=== PATIENT | male | born 1990 | race Caucasian/White ===

== ENCOUNTER 2020-07-06 15:47 | Observation (INO) ==
[2020-07-06] MEDS ORDERED: Naloxone 0.4 MG/ML INJ IVP PRN (17:00)
[2020-07-06] MEDS ORDERED: methocarbamoL 750 MG TABLET PO PRN (18:11)
[2020-07-06] MEDS ORDERED: hydrOXYzine pamoate 25 MG CAPSULE PO PRN (18:11)
[2020-07-06] MEDS ORDERED: GI Cocktail 40 ML EACH PO ONE (18:19)
[2020-07-06] MEDS ORDERED: Acetaminophen 325 MG TABLET PO PRN (18:21)
[2020-07-06] MEDS: Pantoprazole 40 MG VIAL IVP SCH (18:47)
[2020-07-06] MEDS: Ringers Solution, Lactated 1,000 ML IVC SCH (18:47)
[2020-07-06] MEDS: BUPRENORPHINE HCL SL SCH (18:47)
[2020-07-06] MEDS: NALOXONE HCL SL SCH (18:47)
[2020-07-06 20:53] LABS: Amphetamine Screen,Urine Negative ng/mL (Cutoff=1000); Barbiturate Screen,Urine Negative ng/mL (Cutoff=200); Benzodiazepines Screen,Urine Negative ng/mL (Cutoff=200); Cannabinoid Screen,Urine Positive ng/mL (Cutoff = 50); Cocaine Screen,Urine Negative ng/mL (Cutoff= 300); Opiate Screen,Urine Negative ng/mL (Cutoff=300); Phencyclidine Screen,Urine Negative ng/mL (Cutoff=25)
[2020-07-06] MEDS: *HR* Promethazine 25 MG/ML VIAL IM PRN (21:00)
[2020-07-06] MEDS: Divalproex (24 HR) 500 MG TABLET PO SCH (21:01)
[2020-07-06] MEDS: QUEtiapine Fumarate 25 MG TABLET PO SCH (21:01)
[2020-07-07] MEDS: Ringers Solution, Lactated 1,000 ML IVC SCH ×3 (03:40→20:09)
[2020-07-07 04:32] LABS: Basophils % 0.2 %; Eosinophils # 0.1 K/mcL (0.0-0.6); Eosinophils % 0.7 %; Hemoglobin 14.2 g/dL (12.9-16.9); Immature Granulocytes % 0.2 % (0-4); Lymphocytes # 3.1 K/mcL (0.6-4.6); Lymphocytes % 24.8 %; Mean Corpuscular Hemoglobin 29.3 pg (28.0-33.3); Mean Corpuscular Volume 88.7 fL (83.0-100.0); Mean Platelet Volume 9.4 fL (9.4-12.4); Monocytes % 8.2 %; Neutrophils # 8.1 K/mcL (1.6-8.9); Platelet Count 199 K/mcL (140-400); Red Blood Count 4.85 M/mcL (4.19-5.50); Red Cell Distribution Width 12.5 % (11.5-14.5); Segmented Neutrophils % 65.9 %; White Blood Count 12.3 K/mcL (4.3-11.1)
[2020-07-07 04:50] LABS: BUN/Creatinine Ratio 14 (6-26); Blood Urea Nitrogen 17 mg/dL (6-20); Carbon Dioxide 28 mEq/L (23-29); Chloride 103 mEq/L (98-107); Glucose 94 mg/dL (70-105); Osmolality,Calculated 287 (280-300); Potassium 4.6 mEq/L (3.5-5.1); Sodium 138 mEq/L (136-145); eGFR For African Americans > 60 (> 60); eGFR For Non-African Americans > 60 (> 60)
[2020-07-07] MEDS: Fluticasone Propionate Nasal 50 MCG/SPRAY BOTTLE NS SCH (05:31)
[2020-07-07] MEDS: Pantoprazole 40 MG VIAL IVP SCH ×2 (05:31→17:37)
[2020-07-07] MEDS: Colchicine 0.6 MG TABLET PO SCH (08:54)
[2020-07-07] MEDS: BUPRENORPHINE HCL SL SCH (09:09)
[2020-07-07] MEDS: NALOXONE HCL SL SCH (09:09)
[2020-07-07] MEDS: Ondansetron ODT 4 MG TAB.RAPDIS SL PRN (10:58)
[2020-07-07] MEDS: *HR* Buprenorphine HCl 8 MG TAB.SUBL SL SCH (10:58)
[2020-07-07 17:31] LABS: BUN/Creatinine Ratio 14 (6-26); Blood Urea Nitrogen 17 mg/dL (6-20); Calcium 8.8 mg/dL (8.6-10.3); Carbon Dioxide 32 mEq/L (23-29); Chloride 103 mEq/L (98-107); Glucose 92 mg/dL (70-105); Osmolality,Calculated 287 (280-300); Potassium 4.1 mEq/L (3.5-5.1); Sodium 138 mEq/L (136-145); eGFR For African Americans > 60 (> 60); eGFR For Non-African Americans > 60 (> 60)
[2020-07-07] MEDS ORDERED: Perflutren Lipid Microsphere 1.3 ML in 0.9 % Sodium Chloride 8.7 ML IVP PRN (17:32)
[2020-07-07] MEDS: *HR* Promethazine 25 MG/ML VIAL IM PRN (17:42)
[2020-07-07] MEDS ORDERED: Acetaminophen IV 1,000 MG/100 ML INFUS..BTL IVPB ONE (19:58)
[2020-07-07] MEDS: Divalproex (24 HR) 500 MG TABLET PO SCH (20:08)
[2020-07-07] MEDS: QUEtiapine Fumarate 25 MG TABLET PO SCH (20:09)
[2020-07-07] MEDS ORDERED: Ketorolac 15 MG/ML VIAL IVP ONE (23:39)
[2020-07-08] MEDS ORDERED: Ketorolac 15 MG/ML VIAL IVP ONE (03:29)
[2020-07-08 05:03] LABS: Basophils % 0.6 %; Eosinophils # 0.2 K/mcL (0.0-0.6); Eosinophils % 3.3 %; Hematocrit 40.6 % (37.5-50.1); Hemoglobin 12.9 g/dL (12.9-16.9); Immature Granulocytes % 0.1 % (0-4); Lymphocytes # 2.7 K/mcL (0.6-4.6); Lymphocytes % 39.9 %; Mean Corpuscular HGB Conc 31.8 g/dL (31.6-35.5); Mean Corpuscular Hemoglobin 27.9 pg (28.0-33.3); Mean Corpuscular Volume 87.9 fL (83.0-100.0); Mean Platelet Volume 9.6 fL (9.4-12.4); Monocytes # 0.7 K/mcL (0.0-1.3); Monocytes % 10.7 %; Neutrophils # 3.1 K/mcL (1.6-8.9); Platelet Count 160 K/mcL (140-400); Red Blood Count 4.62 M/mcL (4.19-5.50); Red Cell Distribution Width 12.3 % (11.5-14.5); Segmented Neutrophils % 45.4 %; White Blood Count 6.8 K/mcL (4.3-11.1)
[2020-07-08] MEDS: Pantoprazole 40 MG VIAL IVP SCH (05:18)
[2020-07-08] MEDS: Fluticasone Propionate Nasal 50 MCG/SPRAY BOTTLE NS SCH (08:07)
[2020-07-08] MEDS: Colchicine 0.6 MG TABLET PO SCH (08:08)
[2020-07-08] MEDS: *HR* Buprenorphine HCl 8 MG TAB.SUBL SL SCH (08:08)
[2020-07-08] MEDS: Ringers Solution, Lactated 1,000 ML IVC SCH ×2 (08:11→08:12)
[2020-07-08] MEDS: NALOXONE HCL SL SCH (08:12)
[2020-07-08] MEDS: BUPRENORPHINE HCL SL SCH (08:12)
[2020-07-08] MEDS: Ondansetron ODT 4 MG TAB.RAPDIS SL PRN (11:08)
[2020-07-08 11:17] VITALS: BP 131/57
== END 2020-07-08 13:41 | disposition home or self-care (01) ==
LOC: 3BNU → SUATTDRO 16:43
PROVIDERS: ADMIT Internal Medicine; ATTEND Student in an Organized Health Care Education/Training Program